=== PATIENT | male | born 1970 | race Asian ===

== ENCOUNTER → 2023-10-14 09:12 | Outpatient (REF) | payer OTHER, SELFPAY | LOC: RCS 09:12 | PROVIDERS: ATTENDING PHYSICIAN Internal Medicine Interventional Cardiology; FAMILY PHYSICIAN Family Medicine | DX: R07.9 Chest pain, unspecified (principal); I25.2 Old myocardial infarction | CPT/HCPCS: 93017; 93350 ==

== ENCOUNTER → 2025-03-16 12:57 | Outpatient (REF) | payer OTHER, SELFPAY | LOC: RCS 12:57 | PROVIDERS: ATTENDING PHYSICIAN Internal Medicine Interventional Cardiology; FAMILY PHYSICIAN Family Medicine | DX: I25.2 Old myocardial infarction (principal) | CPT/HCPCS: 93306 ==

== ENCOUNTER → 2025-03-30 13:02 | Outpatient (REF) | payer OTHER, SELFPAY | LOC: RCS 13:02 | PROVIDERS: ATTENDING PHYSICIAN Internal Medicine Interventional Cardiology; FAMILY PHYSICIAN Family Medicine | DX: I25.2 Old myocardial infarction (principal) | CPT/HCPCS: 93017; 93350 ==